=== PATIENT | female | born 1950 | race Caucasian/White ===

== ENCOUNTER 2020-01-13 13:07 | Observation (INO) ==
[2020-01-13] MEDS ORDERED: NITROGLYCERIN 2% OINTMENT 30GM TUBE EXT STA (13:25)
--- NOTE | 2020-01-13 13:30 | Emergency Department Note ---
Impression & Plan Precordial chest pain, Jaw pain ED Provider Note NAME: BEATRICE BAJWA AGE: 69 SEX: F : 1950 ARRIVES VIA: Walk-In INFORMANT: [Patient] ED PROVIDER(S): [Krish Greer MD] CHIEF COMPLAINT: Chest pain HISTORY OF PRESENT ILLNESS: The patient is a 69-year-old female presents to the ER with about 3 hours of substernal chest pain. The pain is a 2 or 3 on a scale of 1-10. The patient has not felt short of breath. No sweating or nausea. The patient states that she was doing laundry when the pain began. Over the last several weeks, she has had some intermittent right jaw pain, the pain has come and gone, the jaw pain has not been exertional. The patient denies any cough, cold or congestion. There has been no trauma. The patient has at times experienced bouts of chest pain but, they have always been very short-lived and resolved spontaneously. This episode is lasting longer and has her concerned. Patient did take 2 full-strength aspirin prior to arrival. REVIEW OF SYSTEMS: See HPI for pertinent positives and negatives. A total of ten systems were reviewed and were otherwise negative. PMHx/PSHx: See Below SOCIAL HISTORY: See Below. PHYSICAL EXAM: GENERAL: Patient is in no acute distress. HEENT: No acute trauma, normocephalic atraumatic, mucous membranes moist, no nasal congestion, no scleral icterus. NECK: No stridor, no adenopathy, no meningismus, trachea is midline. LUNGS: Clear to auscultation bilaterally, no wheeze, no rhonchi, breath sounds equal. Chest: Nontender chest wall. HEART: Without murmurs gallops or rubs, regular rate and rhythm. ABDOMEN: Soft, nontender, bowel sounds positive, no hernias, no peritonitis. EXTREMITIES: No cyanosis or edema, full range of motion of all the joints without pain or difficulty, no signs for acute trauma. NEUROLOGIC: Oriented x 3, no acute motor or sensory deficits, no focal weakness. SKIN: No rash, no jaundice, no diaphoresis. DIFFERENTIAL DIAGNOSIS: Cardiac ischemia, aortic dissection, pulmonary embolism, pneumothorax, pneumonia, pericarditis, myocarditis, esophageal rupture, GERD, cholecystitis, pancreatitis, musculoskeletal, as well as other pathologies. EMERGENCY DEPARTMENT COURSE/PROCEDURES: ECG: Indication was chest pain. The ECG shows a normal sinus rhythm with a rate of 68. There is some subtle ST depression in the inferior and lateral leads. There is no ST elevation, no PVCs. The QTc is 412. Continuous Cardiac Monitoring: An order was placed for continuous cardiac monitoring. The monitor shows a rate of 70 with normal sinus rhythm. MEDICAL DECISION MAKING: There is a normal white count and hemoglobin. There is a normal platelet count. No coagulopathy. No significant electrolyte abnormality or kidney failure. No evidence for pancreatitis. No concerning liver enzyme elevation. ECG shows a sinus rhythm, no acute ischemic change. Cardiac enzyme testing x1 is not consistent with acute cardiac injury. Chest x-ray does not show mediastinal widening, pneumonia or pneumothorax. The patient was given nitroglycerin paste, this did help improve her chest discomfort although, it did not completely take the pain away. No additional aspirin was given as she had taken aspirin prior to arrival. Patient presents with precordial chest pain. She has had some intermittent jaw pain as well. She carries some cardiac risk factors, her father had a heart attack in his 70s. Given the patient's discomfort, given her cardiac risk factors and improvement with nitroglycerin, I do think a hospital stay and further cardiac work-up is warranted. I spoke to the patient, I talked to case management. The on-call hospitalist was consulted. At this point, the cause for the pain is unclear Past Med/Surg History Medical History No pertinent past medical history Surgical History No pertinent past surgical history Family History (Updated 01/13/20 @ 16:10 by Lyndsey Ram PA-C) Mother , 62 Breast cancer Father , at age 72 from Stroke Myocardial infarction, Onset Age: 70 Social History Smoking Status: Never smoker Hx Alcohol Use: No Preferred Language: Frisian Feels Safe at Home: Yes Allergies Allergies Allergy/AdvReac Type Severity Reaction Status Date / Time No Known Allergies Allergy Verified 01/13/20 13:46 Home Meds Home Medications Medication Instructions Recorded Confirmed aspirin 325 mg PO Q6H 01/13/20 01/13/20 Previous Rx's Medication Instructions Recorded doxycycline hyclate 100 mg tablet 100 mg PO BID 21 Days #42 tab 12/26/19 Results & Data (ED) Vital Signs Vital Signs - 24 hr 01/13/20 13:10 01/13/20 13:44 01/13/20 14:32 Temperature 36.5 C Temperature Source Oral Pulse Rate 116 H Pulse Rate [Apical] 70 71 Pulse Rhythm Regular Pulse Strength Normal Respiratory Rate 16 16 16 Respiratory Effort / Characteristics Non-Labored Respiratory Depth Normal Respiratory Pattern Regular Blood Pressure 164/73 H Blood Pressure [Left Arm] 141/63 H 154/70 H Blood Pressure Mean 103 Blood Pressure Mean [Left Arm] 89 98 Blood Pressure Position Sitting Pulse Oximetry 99 Oxygen Delivery Method Room Air Sepsis Recent Fever Within 48 Hours No Sepsis New/Unexplained Change in Mental Status N/A Sepsis Action Taken by Nursing No Action Required Home Medications Current Medication List: was personally reviewed by me Laboratory Data Attestation: I reviewed the patient's lab results. Result diagrams: 01/13/20 13:29 01/13/20 13:29 Lab Results 01/13/20 01/13/20 01/13/20 Range/Units 13:29 13:29 13:29 WBC 6.17 (4.8-10.8) K/uL RBC 4.39 (4.2-5.4) M/uL Hgb 13.2 (12.0-16.0) g/dL Hct 40.6 (37-47) % MCV 92.5 (80-100) fL MCH 30.1 (25-34) pg MCHC 32.5 (32-36) g/dL RDW Std Deviation 45.6 (36.4-46.3) fL RDW Coeff of Saleem 13.4 (11.5-14.5) % Plt Count 294 (130-400) K/uL MPV 10.1 (7.4-10.4) fL Immature Gran % (Auto) 0.2 % Neut % (Auto) 64.5 % Lymph % (Auto) 25.8 % [place] % (Auto) 7.6 % Eos % (Auto) 1.6 % Baso % (Auto) 0.3 % Neut # (Auto) 3.98 (1.4-6.5) K/uL Lymph # (Auto) 1.59 (1.2-3.4) K/uL [place] # (Auto) 0.47 (0.11-0.59) K/uL Eos # (Auto) 0.10 (0-0.5) K/uL Baso # (Auto) 0.02 (0-0.2) K/uL Immature Gran # (Auto) 0.01 (0.00-0.02) K/uL PT 10.7 (9.0-12.0) Seconds INR 1.0 (0.9-1.1) APTT 25.5 (21.0-31.0) Seconds PTT Ratio 0.9 Sodium 140 (136-145) mmol/L Potassium 4.0 (3.5-5.1) mmol/L Chloride 107 (98-107) mmol/L Carbon Dioxide 26 (21-32) mmol/L Anion Gap 7.0 (3-11) BUN 17 (7-18) mg/dl Creatinine 0.87 (0.6-1.2) mg/dl Est Cr Clr Drug Dosing 47.6 ml/min Est GFR ( Amer) 78.2 Est GFR (Non-Af Amer) 67.5 BUN/Creatinine Ratio 19.2 (10-20) Glucose 94 (70-99) mg/dl Calcium 10.1 (8.5-10.1) mg/dl Magnesium 2.8 H (1.8-2.4) mg/dl Total Bilirubin 0.4 (0.2-1) mg/dl AST 22 (15-37) U/L ALT 26 (12-78) U/L Alkaline Phosphatase 72 (45-117) U/L Troponin I < 0.015 (0-0.045) ng/ml Total Protein 8.2 (6.4-8.2) gm/dl Albumin 4.1 (3.4-5.0) gm/dl Globulin 4.1 H (2.5-4.0) gm/dl Albumin/Globulin Ratio 1.0 (0.9-2) Lipase 137 (73-393) U/L Administered Medications Discontinued Medications Aspirin (Aspirin Chew 324 Mg) 324 mg PO NOW STA Stop: 01/13/20 15:17 Last Admin: 01/13/20 15:20 Dose: Not Given Documented by: [id number] Nitroglycerin (Nitroglycerin 2% Ointment 30gm Tube) 1 inch EXT NOW STA Stop: 01/13/20 13:26 Last Admin: 01/13/20 13:43 Dose: 1 inch Documented by: [id number] Imaging Data Radiologist's Impression: XR chest 1V portable CLINICAL HISTORY: Atypical chest pain COMPARISON STUDY: No previous studies for comparison. FINDINGS: The cardiac and mediastinal contours are normal. There is no evidence of focal pulmonary consolidation. There is no evidence of failure. No pleural effusions are visualized.[There are minor linear subsegmental atelectatic changes at the left lung base. IMPRESSION: No active disease in the chest. Discharge Plan Visit Data Chief Complaint: Chest Pain Stated Complaint: CHEST PAIN ED Provider: Krish Greer Discharge Problem: Precordial chest pain, Jaw pain Patient Disposition: Admitted As Inpatient Condition: Good Forms Stand Alone Forms: [facility] Prescriptions Prescriptions: No Action doxycycline hyclate 100 mg tablet 100 mg PO BID 21 Days Qty: 42 RF: 0 aspirin 325 mg Tablet 325 mg PO Q6H RF: 0 Referrals Referrals: Hung Lisa DO [Primary Care Provider] -
[2020-01-13 13:41] LABS: Basophils # (auto) 0.02 K/uL (0-0.2); Basophils % (auto) 0.3 %; Eosinophils % (auto) 1.6 %; Hematocrit (blood only) 40.6 % (37-47); Hemoglobin 13.2 g/dL (12.0-16.0); Immature Granulocytes # (auto) 0.01 K/uL (0.00-0.02); Immature Granulocytes % (auto) 0.2 %; Lymphocytes # (auto) 1.59 K/uL (1.2-3.4); Lymphocytes % (auto) 25.8 %; Mean Corpuscular Hemoglobin 30.1 pg (25-34); Mean Corpuscular Hgb Conc 32.5 g/dL (32-36); Mean Corpuscular Volume 92.5 fL (80-100); Mean Platelet Volume 10.1 fL (7.4-10.4); Monocytes # (auto) 0.47 K/uL (0.11-0.59); Monocytes % (auto) 7.6 %; Neutrophils # (auto) 3.98 K/uL (1.4-6.5); Neutrophils % (auto) 64.5 %; Platelet Count 294 K/uL (130-400); RDW Coefficient of Variation 13.4 % (11.5-14.5); RDW Standard Deviation 45.6 fL (36.4-46.3); Red Blood Count 4.39 M/uL (4.2-5.4); White Blood Count 6.17 K/uL (4.8-10.8)
[2020-01-13 13:53] LABS: Partial Thromboplastin Ratio 0.9; Partial Thromboplastin Time 25.5 Seconds (21.0-31.0); Prothrombin Time 10.7 Seconds (9.0-12.0)
--- NOTE | 2020-01-13 13:55 | XRay Report ---
XR chest 1V portable CLINICAL HISTORY: Atypical chest pain COMPARISON STUDY: No previous studies for comparison. FINDINGS: The cardiac and mediastinal contours are normal. There is no evidence of focal pulmonary co nsolidation. There is no evidence of failure. No pleural effusions are visualized.[There are minor li near subsegmental atelectatic changes at the left lung base. IMPRESSION: No active disease in the chest. ACT 112: Negative or not required by law. Electronically signed by: Michael Staton M.D. 01/13/2020 1:54 PM
[2020-01-13 14:02] LABS: Alanine Aminotransferase 26 U/L (12-78); Albumin Level 4.1 gm/dl (3.4-5.0); Aspartate Aminotransferase 22 U/L (15-37); BUN Creatinine Ratio 19.2 (10-20); Blood Urea Nitrogen 17 mg/dl (7-18); Calcium 10.1 mg/dl (8.5-10.1); Carbon Dioxide 26 mmol/L (21-32); Chloride 107 mmol/L (98-107); Creatinine Clr Calc Pharmacy 47.6 ml/min; Est GFR (African American) 78.2; Est GFR (Non-African American) 67.5; Glucose 94 mg/dl (70-99); Lipase 137 U/L (73-393); Magnesium 2.8 mg/dl (1.8-2.4); Sodium 140 mmol/L (136-145)
[2020-01-13 14:06] LABS: Alkaline Phosphatase 72 U/L (45-117); Bilirubin,Total 0.4 mg/dl (0.2-1); Globulin 4.1 gm/dl (2.5-4.0); Total Protein 8.2 gm/dl (6.4-8.2); Troponin I < 0.015 ng/ml (0-0.045)
[2020-01-13] MEDS ORDERED: ASPIRIN CHEW 324 MG PO STA (15:16)
--- NOTE | 2020-01-13 15:40 | Electrocardiogram Report ---
Test Reason : Blood Pressure : / mmHG Vent. Rate : 068 BPM Atrial Rate : 068 BPM P-R Int : 142 ms QRS Dur : 076 ms QT Int : 388 ms P-R-T Axes : 067 056 049 degrees QTc Int : 412 ms Normal sinus rhythm Normal ECG When compared with ECG of 09-MAR-1997 20:10, No significant change was found Confirmed by Eugenio Pierce ([id number]) on 01/13/2020 3:39:37 PM Referred By: Hung Lisa Confirmed By:Neal Pierce
--- NOTE | 2020-01-13 16:16 | History & Physical Report ---
Date of Service January 13, 2020 Assessment & Plan (1) Chest pain: * OBS medical with telemetry * Serial troponin -- first set negative * ECHO ordered * AHA diet * NPO after midnight in case she needs any intervention/cath * Previous lipid panel Dec 2019 with elevated cholesterol -- will start on a torvastatin and repeat in AM * A1c in AM * Will add Lyme testing to prior blood drawn if possible -- if negative d/c Doxy * Nitro -- resolution currently pain free * Labs in AM (2) Tick bite of left side of chest wall: * Has been on doxy -- under left breast and was prescibed 3 week course. 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 SCDs If troponins elevated would start on heparin FULL CODE Dispo: admit to med tele r/o ACS History of Present Illness Chief Complaint: chest pain Primary Care Provider: Hung Lisa DO 69 year old female without significant past medical history presented to the emergency department for chest pain that has been going on for the past 4-5 hours. She states she was in her usual state of health this morning and ate at 7am 2 eggs, toast and milk and then when she went to [facility] developed substernal chest pain that did not subside. She states she has episodes like this discomfort in the past couple of years, on and off, and can vary from sharp to a dull sensation and typically last a few seconds-minutes and subside. She has also gotten R sided jaw pain on and off for the past couple weeks, and also a headache this morning, which she takes aspirin for on occasion. She presented due to persistent discomfort. Currently chest pain free for the past hour since application of nitro. She was recently seen by her PCP in December for a tick bite under her left breast and was not tested for Lyme but was prescribed a course of doxycycline for 3 weeks and has another 3.5 days left of treatment. She denies any dysphagia and has been taking this medication with a full glass of water. Anxiety present with holidays and family stressors, however nothing acutely that brought about current episode. She has never been seen by cardiology, had an ECHO, or cardiac catheterization ni the past. She did have an elevated cholesterol 222 in December and has not been started on statin therapy at this time. She does endorse father passed at age 72 from a stroke but had an IN at age 69. She states her mother passed at age 62 from breast cancer and that the patient has not had a mammogram in at least 10 years. She denies any unexplained weight loss, fever, chills, night sweats or shortness of breath. No calve tenderness or swelling prior to chest pain. Not worsened by bending over or with exertion. No current associated nausea, vomiting or diaphoresis. No smoking history of alcohol use. ER Course: ASA 324mg POx1. Nitro-BID 1 inch to R shoulder. EKG with some ST depression but no ST elevation. CBC unremarkable. INR 1.0. CMP unremarkable. Mag 2.8. Lipase 137. CXR without acute process but does note min subsegmental atelectatic changes L base. Allergies Allergy/AdvReac Type Severity Reaction Status Date / Time No Known Allergies Allergy Verified 01/13/20 13:46 Home Medications Medication Instructions Recorded Confirmed Type doxycycline hyclate 100 mg tablet 100 mg PO BID 21 Days #42 tab 12/26/19 01/13/20 Rx aspirin 325 mg PO Q6H 01/13/20 01/13/20 History Past Med/Surg History Medical History No pertinent past medical history Surgical History No pertinent past surgical history Family History (Updated 01/13/20 @ 16:10 by Lyndsey Ram PA-C) Mother , 62 Breast cancer Father , at age 72 from Stroke Myocardial infarction, Onset Age: 70 Social History Smoking Status: Never smoker Second Hand Exposure: No; Do You Dip or Chew Tobacco: No; Hx Alcohol Use: No Hx Substance Use: No Preferred Language: Belarusian Senior 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 Required: No Beliefs That Will Affect Care: None Current Living Situation: Alone Other Information That Helps Us Care for You: No Feels Safe at Home: Yes Safety Concerns: Feels Safe At This Time Assistive Devices: Glasses Review of Systems Review of Systems: All systems reviewed & are unremarkable except as noted in HPI & below Constitutional: no fever and no chills Eyes: no diplopia and no dry eyes Ear, Nose, Mouth, Throat: no sore throat and no dysphagia Respiratory: no cough and no dyspnea Cardiovascular: + chest pain; no syncope Gastrointestinal: no abdominal pain, no nausea and no vomiting Genitourinary: no dysuria and no urinary frequency Musculoskeletal: R jaw pain Integumentary: no rash and no lesions prior tick bite under L breast, lateral Neurologic: no falls and no paralysis Psychiatric: + anxiety; no depression Endocrine: no fatigue, no polydipsia and no polyphagia Hematologic / Lymphatic: no coagulopathy and no lymphadenopathy Allergy / Immunological: no cough and no dyspnea Physical Exam Constitutional: WD/WN, vitals as above comfortable; no acute distress Eyes: + anicteric sclerae and PERRL ENMT: external ear and nose normal, oropharynx normal Neck: trachea midline, no thyromegaly Respiratory: normal respiratory effort, lungs clear to auscultation Cardiovascular: RRR, no murmur, no edema Chest (Breasts): Additional Comments: left healed tick bite, no evidence of bullseye rash Gastrointestinal (Abdomen): normal bowel sounds, soft, nontender, no hepatosplenomegaly Musculoskeletal: no cyanosis or clubbing, extremities motor strength 5/5 Skin: no lesions and no ulcers Neurologic: PERRL, EOMI, accommodation nl, no face palsy, no dysarthria Psychiatric: A+Ox3, euthymic affect Lymphatic: no cervical or axillary lymphadenopathy Results & Data Results & Data ([facility]) Vital Signs (Past 12 Hours) Vital Signs Temp Pulse Pulse Resp BP BP Pulse Ox 01/13/20 14:32 71 16 154/70 H 01/13/20 13:44 70 16 141/63 H 01/13/20 13:10 36.5 C 116 H 16 164/73 H 99 Laboratory Results 01/13/20 01/13/20 01/13/20 Range/Units 13:29 13:29 13:29 WBC 6.17 (4.8-10.8) K/uL RBC 4.39 (4.2-5.4) M/uL Hgb 13.2 (12.0-16.0) g/dL Hct 40.6 (37-47) % MCV 92.5 (80-100) fL MCH 30.1 (25-34) pg MCHC 32.5 (32-36) g/dL RDW Std Deviation 45.6 (36.4-46.3) fL RDW Coeff of Saleem 13.4 (11.5-14.5) % Plt Count 294 (130-400) K/uL MPV 10.1 (7.4-10.4) fL Immature Gran % (Auto) 0.2 % Neut % (Auto) 64.5 % Lymph % (Auto) 25.8 % [place] % (Auto) 7.6 % Eos % (Auto) 1.6 % Baso % (Auto) 0.3 % Neut # (Auto) 3.98 (1.4-6.5) K/uL Lymph # (Auto) 1.59 (1.2-3.4) K/uL [place]le # (Auto) 0.47 (0.11-0.59) K/uL Eos # (Auto) 0.10 (0-0.5) K/uL Baso # (Auto) 0.02 (0-0.2) K/uL Immature Gran # (Auto) 0.01 (0.00-0.02) K/uL PT 10.7 (9.0-12.0) Seconds INR 1.0 (0.9-1.1) APTT 25.5 (21.0-31.0) Seconds PTT Ratio 0.9 Sodium 140 (136-145) mmol/L Potassium 4.0 (3.5-5.1) mmol/L Chloride 107 (98-107) mmol/L Carbon Dioxide 26 (21-32) mmol/L Anion Gap 7.0 (3-11) BUN 17 (7-18) mg/dl Creatinine 0.87 (0.6-1.2) mg/dl Est Cr Clr Drug Dosing 47.6 ml/min Est GFR ( Amer) 78.2 Est GFR (Non-Af Amer) 67.5 BUN/Creatinine Ratio 19.2 (10-20) Glucose 94 (70-99) mg/dl Calcium 10.1 (8.5-10.1) mg/dl Magnesium 2.8 H (1.8-2.4) mg/dl Total Bilirubin 0.4 (0.2-1) mg/dl AST 22 (15-37) U/L ALT 26 (12-78) U/L Alkaline Phosphatase 72 (45-117) U/L Troponin I < 0.015 (0-0.045) ng/ml Total Protein 8.2 (6.4-8.2) gm/dl Albumin 4.1 (3.4-5.0) gm/dl Globulin 4.1 H (2.5-4.0) gm/dl Albumin/Globulin Ratio 1.0 (0.9-2) Lipase 137 (73-393) U/L Diagnostic Findings CXR IMPRESSION: No active disease in the chest. Supervising Physician Co-Signing Physician Notes Attending Attestation & Admission Note: Pt seen/examined, chart reviewed, care plan d/w MAYKEL Ram. I agree w/ the jacob components of her documentation. Pleasant 69yo female who presented with episode of mid-sternal chest pain beginning this am about 1-2 hours after eating breakfast. Has had intermittent episodes of similar type of pain "for years" but today's was quite severe. During my assessment the patient was resting comfortably on the telemetry unit. She stated her pain was still present and was coming/going. Nothing today - aspirin, nitro, etc - has completely relieved the pain. Denies burping, belching, nausea, worsening of symptoms with eating, pleuritic quality, worsening of pain with laying down, cough, congestion. When I palpated her chest it did not reproduce the pain. PMH, PSH, allergies, meds, sochx, famhx, ros - reviewed VSS, BPs mildly elevated gen - NAD, pleasant neck - no JVD heart - RRR, s1 s2, no murmur lungs - CTA b/l abd - soft NT ND BS+ chest - no reproducible chest wall pain ext - no edema EKG - NSR, no ST changes CXR - wnl trop neg x 2 other labs wnl A/P: Chest pain - recurrent episodes. Incomplete response to aspirin, nitro, etc. Doubt pulmonary - O2 sats wnl, no pleurisy, no other pulmonary symptoms. Doubt musculoskeletal - pain not reproduced with movement or palpation. Could be esophageal/esophagitis given 3+ week course of doxycycline use--> trial of carafate qid with stat dose of IV pepcid. Trend her troponins. Echo. Depending on above consider stress test. Dawit Amador MD PG Care Time/CCT Total # of Minutes Spent Total Time Spent with Patient: Total time spent is greater than 50% in coordination of care (as documented) at patient's floor/unit and/or counseling patient: Coding Level of Care Code 62553 OBS Care - Level 3 Diagnoses Chest pain R07.9 Tick bite of left side of chest wall S20.362A; W57.XXXA Jaw pain R68.84 HLD (hyperlipidemia) E78.5 HTN (hypertension), benign I10
[2020-01-13 17:22] LABS: Lyme Ab IgG w/WB Rflx Negative (Negative); Lyme Ab IgM w/WB Rflx Negative (Negative)
[2020-01-13] MEDS ORDERED: ACETAMINOPHEN 325 MG TAB PO PRN (18:41)
[2020-01-13] MEDS ORDERED: MAGNESIUM HYDROXIDE SUSP 30 ML UDC PO PRN (18:41)
[2020-01-13] MEDS ORDERED: NITROGLYCERIN SL 0.4 MG/TAB TAB SL PRN (18:41)
[2020-01-13] MEDS ORDERED: POLYETHYLENE (MIRALAX) 17 GM PACK PO PRN (18:41)
[2020-01-13] MEDS ORDERED: ONDANSETRON INJ 2 MG/ML 2 ML VIAL IV PRN (18:41)
[2020-01-13] MEDS ORDERED: ALUMINUM/MAGNESIUM SUSP 30 ML UDC PO PRN (18:41)
[2020-01-13] MEDS ORDERED: FAMOTIDINE 20MG IV PUSH 20 MG/5 ML SYR IV ONE (22:00)
[2020-01-13] MEDS: SUCRALFATE 1 GM/10 ML UDC PO SCH (22:16)
[2020-01-14] MEDS: SUCRALFATE 1 GM/10 ML UDC PO SCH ×3 (07:47→17:29)
[2020-01-14 08:14] LABS: Hematocrit (blood only) 40.5 % (37-47); Hemoglobin 13.1 g/dL (12.0-16.0); Mean Corpuscular Hemoglobin 29.9 pg (25-34); Mean Corpuscular Hgb Conc 32.3 g/dL (32-36); Mean Corpuscular Volume 92.5 fL (80-100); Mean Platelet Volume 10.2 fL (7.4-10.4); Platelet Count 276 K/uL (130-400); RDW Coefficient of Variation 13.3 % (11.5-14.5); RDW Standard Deviation 45.5 fL (36.4-46.3); Red Blood Count 4.38 M/uL (4.2-5.4); White Blood Count 5.53 K/uL (4.8-10.8)
[2020-01-14 08:43] LABS: Albumin Level 3.9 gm/dl (3.4-5.0); BUN Creatinine Ratio 20.9 (10-20); Calcium 9.6 mg/dl (8.5-10.1); Creatinine Clr Calc Pharmacy 43.1 ml/min; Est GFR (African American) 69.4; Est GFR (Non-African American) 59.9; Potassium 3.9 mmol/L (3.5-5.1)
[2020-01-14 08:47] LABS: Bilirubin,Total 0.7 mg/dl (0.2-1); Globulin 3.9 gm/dl (2.5-4.0); Total Protein 7.8 gm/dl (6.4-8.2)
[2020-01-14] MEDS ORDERED: ATORVASTATIN 20 MG TAB PO SCH (09:00)
[2020-01-14 09:39] LABS: Estimated Average Glucose 114 mg/dl; Hemoglobin A1C 5.6 % (4.5-5.6)
[2020-01-14] MEDS ORDERED: PANTOprazole 40 MG TAB PO SCH (10:45)
--- NOTE | 2020-01-14 12:11 | XCELERA ---
[id number] \\[id number]
[2020-01-14] MEDS ORDERED: NITROGLYCERIN SL 0.4 MG/TAB TAB SL STA (13:10)
[2020-01-14 14:10] LABS: D Dimer 210 ug/L FEU (0-500)
--- NOTE | 2020-01-14 14:24 | Electrocardiogram Report ---
Test Reason : Blood Pressure : / mmHG Vent. Rate : 063 BPM Atrial Rate : 063 BPM P-R Int : 154 ms QRS Dur : 072 ms QT Int : 412 ms P-R-T Axes : 044 075 047 degrees QTc Int : 421 ms Normal sinus rhythm Normal ECG When compared with ECG of 13-JAN-2020 13:18, No significant change was found Confirmed by Eugenio Pierce ([id number] on 01/14/2020 2:24:18 PM Referred By: Hung Lisa Confirmed By:Neal Pierce
--- NOTE | 2020-01-14 15:19 | XCELERA ---
[id number] \\[id number]
--- NOTE | 2020-01-14 16:28 | Discharge Summary ---
Date of Service January 14, 2020 Admission HPI Per Admitting Provider 69 year old female without significant past medical history presented to the emergency department for chest pain that has been going on for the past 4-5 hours. She states she was in her usual state of health this morning and ate at 7am 2 eggs, toast and milk and then when she went to [facility] laundry developed substernal chest pain that did not subside. She states she has episodes like this discomfort in the past couple of years, on and off, and can vary from sharp to a dull sensation and typically last a few seconds-minutes and subside. She has also gotten R sided jaw pain on and off for the past couple weeks, and also a headache this morning, which she takes aspirin for on occasion. She presented due to persistent discomfort. Currently chest pain free for the past hour since application of nitro. She was recently seen by her PCP in December for a tick bite under her left breast and was not tested for Lyme but was prescribed a course of doxycycline for 3 weeks and has another 3.5 days left of treatment. She denies any dysphagia and has been taking this medication with a full glass of water. Anxiety present with holidays and family stressors, however nothing acutely that brought about current episode. She has never been seen by cardiology, had an ECHO, or cardiac catheterization ni the past. She did have an elevated cholesterol 222 in December and has not been started on statin therapy at this time. She does endorse father passed at age 72 from a stroke but had an CO at age 70. She states her mother passed at age 62 from breast cancer and that the patient has not had a mammogram in at least 10 years. She denies any unexplained weight loss, fever, chills, night sweats or shortness of breath. No calve tenderness or swelling prior to chest pain. Not worsened by bending over or with exertion. No current associated nausea, vomiting or diaphoresis. No smoking history of alcohol use. ER Course: ASA 324mg POx1. Nitro-BID 1 inch to R shoulder. EKG with some ST depression but no ST elevation. CBC unremarkable. INR 1.0. CMP unremarkable. Mag 2.8. Lipase 137. CXR without acute process but does note min subsegmental atelectatic changes L base. Admission Exam Per Admitting Provider Constitutional: WD/WN, vitals as above comfortable; no acute distress Eyes: + anicteric sclerae and PERRL ENMT: external ear and nose normal, oropharynx normal Neck: trachea midline, no thyromegaly Respiratory: normal respiratory effort, lungs clear to auscultation Cardiovascular: RRR, no murmur, no edema Chest (Breasts): Additional Comments: left healed tick bite, no evidence of bullseye rash Gastrointestinal (Abdomen): normal bowel sounds, soft, nontender, no hepatosplenomegaly Musculoskeletal: no cyanosis or clubbing, extremities motor strength 5/5 Skin: no lesions and no ulcers Neurologic: PERRL, EOMI, accommodation nl, no face palsy, no dysarthria Psychiatric: A+Ox3, euthymic affect Lymphatic: no cervical or axillary lymphadenopathy Principal Diagnosis Chest Pain R/O ACS Discharge Exam Constitutional WD/WN, vitals as above comfortable; no acute distress Eyes + anicteric sclerae and PERRL ENMT external ear and nose normal, oropharynx normal Neck trachea midline, no thyromegaly Respiratory normal respiratory effort, lungs clear to auscultation Cardiovascular RRR, no murmur, no edema Gastrointestinal (Abdomen) normal bowel sounds, soft, nontender, no hepatosplenomegaly Musculoskeletal no cyanosis or clubbing, extremities motor strength 5/5 Skin no lesions and no ulcers Neurologic PERRL, EOMI, accommodation nl, no face palsy, no dysarthria Psychiatric A+Ox3, euthymic affect Lymphatic no cervical or axillary lymphadenopathy Discharge Data Allergies Allergy/AdvReac Type Severity Reaction Status Date / Time No Known Allergies Allergy Verified 01/13/20 13:46 Consultations 01/13/20 15:06 ED Decision to Admit Stat Ordered Studies CXR ECHO Stress ECHO Hospital Course (1) Chest pain: OBS medical with telemetry troponin negative x 3 ECHO with normal LV systolic function. No significant valvular heart disease Stress ECHO without inducible ischemia Had been on doxy x 3 weeks for presumed Lyme with tick bite, although Lyme testing negative and was discontinued. Thoughts possibly related to esophagitis and trial of carafate with PPI therapy resumed Ddimer 220, NEGATIVE Did have resolution of symptoms with nitro in ER with nitro but stated she continued to get intermittently Lipid panel with elevated cholesterol and was started on low dose statin Discharged with PPI/carafate and is continued symptoms would rec f/u outpatient GI referral with EGD Of note, patient with family history of breast CA and patient has not had one in over 10 years. Recommend she have routine screening. No palpable masses, weight loss, night sweats reported (2) Tick bite of left side of chest wall: Has been on doxy -- tick under left breast and was prescribed 3 week course. Additional 4.5 days left but will hold off for now as patient never had testing Lyme negative and was discontinued (3) Jaw pain: With chest pain -- has been using aspirin [employer] (4) HLD (hyperlipidemia): Lipid panel December 2019 with cholesterol 222, LDL 132, HDL 72, triglycerides 91 Start on Lipitor 20mg for prevention given family history CO/stroke (5) HTN (hypertension), benign: BP elevated to 154/70 on isolated occasion but has been well controlled off medications Currently 105/68 Follow up with PCP and if elevated in future would start on low dose BB (possibly propranolol if component of anxiety present) Discharged home. Total Time Total Time Spent Total Time Spent (In Minutes): 60 Discharge Plan Discharge Items Patient Disposition: Home - Self-Care Reason For Visit: CHEST PAIN Discharge Diagnosis: Chest Pain, Reflux Condition on Discharge: Good Goals: You have been hospitalized for an acute medical problem. During your stay at [facility], we have made an effort to correct the problem that brought you to the hospital while keeping you as comfortable as possible. Medications were used to bring your condition under control and your discharge instructions will include directions for any medications you should take after leaving the hospital. Please make sure you see your Primary Care Provider as part of your follow up plan. Activity: Resume your previous activity Non-emergency contact: Primary Care Provider Call non-emergency contact if: you have any medication questions, your symptoms worsen and your pain is concerning for you Follow-up/Referrals: Hung Lisa DO [Primary Care Provider] - Diet: Heart Healthy Addtl Attending Provider Instructions: You have been hospitalized for chest pain. Your troponin (enzyme to test for cardiac muscle ischemia) were negative for each of three separate times. EKGs have been unremarkable. ECHO (ultrasound of your heart) was performed and did not show any valvular heart disease or wall motion abnormality. Given continued intermittent pains, a stress test was also done which did not show any evidence of ischemia. You were previously taking doxycycline for a tick bite, and Lyme testing showed NEGATIVE for lyme and you should not take any further doxycycline as this may be the culprit for your current symptoms. You have been started on a statin for elevated cholesterol with your family history and should continue this daily. A ddimer was also checked and this was NEGATIVE. A negative ddimer RULES OUT a pulmonary embolism. You are also being sent with a prescription for Protonix (reflux medication) and Carafate to help with any reflux or inflammation from the doxycycline. If symptoms continue to persist after treatment you should further discuss with your PCP at follow up. Please return to the emergency department with any worsening pain, shortness of breath or for any symptoms that are concerning for you. It has been a pleasure being a part of the medical team providing for you. Take care! Pending Studies at Discharge: No Stand-Alone Forms: My [facility] [employer], Smoking Cessation Medications and DC Order Prescriptions: New atorvastatin 20 mg Tablet 20 mg PO HS Qty: 30 RF: 0 sucralfate 100 mg/mL Suspension 1 g PO QID 5 Days Qty: 200 RF: 0 pantoprazole 40 mg Tablet,Delayed Release (Dr/Ec) 40 mg PO QAM Qty: 30 RF: 0 Changed aspirin 325 mg Tablet 81 mg PO QDB Qty: 0 RF: 0 Discontinued doxycycline hyclate 100 mg tablet 100 mg PO BID 21 Days Qty: 42 RF: 0 Discharge Orders: Discharge Order (Routine); Ordered 01/14/20 Ordered By: Lyndsey Ram Admission Data Admit Date/Time: 01/13/20 16:19 Attending Provider: Etienne Chavez Admit Provider: Dawit Amador Primary Care Provider: Hung Lisa Other Providers: Dawit Amador Coding Level of Care Code 60080 OBS Care - Discharge Diagnoses Chest pain R07.9 Tick bite of left side of chest wall S20.362A; W57.XXXA Jaw pain R68.84 HLD (hyperlipidemia) E78.5 HTN (hypertension), benign I10
--- NOTE | 2020-01-26 10:15 | Coding Letter ---
A supporting diagnosis is required for the test/procedure performed on this patient in order for us to be reimbursed by the patient's insurance. Please provide a supporting diagnosis for the following test/procedure listed below next to the test name along with your signature. *If there is no additional diagnosis for this patient that would support the following test/procedure please document that below next to the test/procedure. Test(s)/Procedure(s) that require a supporting diagnosis: HBA1C DIAGNOSIS: Provider Signature: Date: Thank you Yolie Menezes Health Information Management Once completed, please kindly fax back to [phone] For questions please call [phone] [facility]
== END 2020-01-14 17:56 | disposition home or self-care (01) ==
LOC: ED 13:07 → 2W 13:07 → SUATTDRO 16:19 → 2W 17:41